=== PATIENT | female | born 2000 | race Caucasian/White ===

== ENCOUNTER 2023-09-12 01:55 | Emergency (ER) | payer OTHER ==
[2023-09-12] MEDS: Budesonide 0.5 MG/2 ML Neb Susp NEB ONE (02:17)
[2023-09-12] MEDS: Glucagon,Human Recombinant 1 MG Vial IVPUSH ONE (02:18)
== END 2023-09-12 02:46 | disposition home or self-care (01) ==
LOC: VM.ED 01:55
DX: K22.2 Esophageal obstruction (principal)
CPT/HCPCS: 94640; 96374; 99283; J1610; J3490